=== PATIENT | male | born 1955 | race Caucasian/White ===

== ENCOUNTER → 2016-05-07 | Outpatient (CLI) | payer BC ==
[~2016-05-07] MED LIST: OXYC-57 PO
[2016-05-07 18:51] LABS: BLOOD UREA NITROGEN 17 mg/dl (7-18); BUN/CREATININE RATIO 17.4 (10-20); CALCIUM 8.6 mg/dl (8.5-10.1); CARBON DIOXIDE 29 mmol/L (21-32); CHLORIDE 107 mmol/L (98-107); GLUCOSE 96 mg/dl (70-99); SODIUM 145 mmol/L (136-145)
== END | disposition home or self-care (01) ==
LOC: C.LABMFLN 14:38
PROVIDERS: ATTEND Surgery
DX: Z01.812 Encounter for preprocedural laboratory examination (principal); K40.90 Unilateral inguinal hernia, without obstruction or gangrene, not specified as recurrent

== ENCOUNTER → 2016-05-10 | Outpatient (CLI) | payer BC ==
--- NOTE | 2016-05-10 18:05 | EXERCISE STRESS ECHO ---
*NOTICE TO RECEIVING DEMOCRAT AGENCY This information is strictly Confidential and protected under [place] law. [place] law prohibits you from making any further disclosure of this information unless further disclosure is expressly permitted by the written consent of the person to whom it pertains or is authorized by law. A general authorization for the release of medical or other information is not sufficient for this purpose. Hospital accepts no responsibility if the information is made available to any other person, INCLUDING THE PATIENT. Interpretation Summary * Name: MG URIARTE Study Date: 05/10/2016 10:40 AM BP: 134/78 mmHg * Patient Location: [facility] HR: 77 * : 1955 (M/d/yyyy) Gender: Male Height: 69 in * Age: 60 yrs Ethnicity: [place] Weight: 165 lb * Ordering Physician: Jesus Angel * Referring Physician: Jesus Angel * Performed By: Ramila Casey RCS * * Reason For Study: Abnormal EKG * BSA: 1.9 m2 * -- Conclusions -- * 1. Negative exercise stress echo for ischemia at 104 % MPHR. * 2. Negative stress ECG for ischemia. * 3. Above average functional capacity. Exercised 9:00 min, acheiving 10.1 METS. * 4. No exercise induced chest pain. Normal hemodynamic response to exercise. * 5. Normal resting LV size and function. EF 60-65%. Borderline RV enlargement, normal RV function. No significant valvular pathology. * 6. No prior studies for comparison. Procedure Details * ECHOEX, CPT #[id number] * ECHO COLOR FLOW, CPT #[id number] * ECHO DOPPLER, CPT #[id number] Left Ventricle * The left ventricle is grossly normal size. * There is normal left ventricular wall thickness. * Ejection Fraction = 60-65%. * Resting wall motion: Normal. Stress wall motion: Appropriate increase in Left ventricular systolic function and decrease in cavity size. No stress induced segmental wall motion abnormalities. Right Ventricle * Borderline right ventricular enlargement. * The right ventricular systolic function is normal as assessed by tricuspid annular plane systolic excursion (TAPSE) (normal >1.5 cm). Atria * The left atrial size is normal. * Borderline right atrial enlargement. * No ASD detected; PFO is not assessed. Mitral Valve * The mitral valve is grossly normal. * There is no mitral valve stenosis. * Significant mitral regurgitation is absent. Tricuspid Valve * The tricuspid valve is not well visualized, but is grossly normal. * There is no tricuspid stenosis. * Significant tricuspid regurgitation is absent. Aortic Valve * The aortic valve opens well. * No hemodynamically significant valvular aortic stenosis. * There is no significant aortic regurgitation. Pulmonic Valve * The pulmonary valve is inadequately visualized, but the Doppler data is adequate for interpretation. * There is no significant pulmonary regurgitation. Great Vessels * The aortic root and proximal ascending aorta are normal sized. Pericardium * There is no pericardial effusion. Stress Parameters * Sinus rhythm, left axis deviation, possible septal infarct. Incomplete RBBB. No ST abnormalities * Stress ECG: No ST changes. No arrhythmias. * Rest heart rate was '77' BPM. * Rest blood pressure was '134/78' * Maximum heart rate achieved was 166 bpm. * Maximum heart rate was 104 % of maximum age-predicted heart rate. * Maximum blood pressure was '185/67' * Total exercise time was '9:00' * Maximum exercise MET level achieved was '10.1' METS * Maximum treadmill speed was '3.4' miles per hour. * Maximum treadmill elevation was '14'% grade. * Exercise was terminated due to 'achieving target heart rate' * Normal blood pressure response to exercise. MMode 2D Measurements and Calculations IVSd 1.0 cm IVSs 1.4 cm LVIDd 4.7 cm LVIDs 3.1 cm LVPWd 0.99 cm LVPWs 1.4 cm IVS/LVPW 1.1 FS 34.6 % EDV(Teich) 100.6 ml ESV(Teich) 36.5 ml EF(Teich) 63.7 % EDV(cubed) 101.5 ml ESV(cubed) 28.4 ml EF(cubed) 72.0 % % IVS thick 30.1 % % LVPW thick 41.3 % LV mass(C)d 166.2 grams LV mass(C)dI 87.3 grams/m\S\2 LV mass(C)s 140.0 grams LV mass(C)sI 73.5 grams/m\S\2 CO(Teich) 4.4 l/min CI(Teich) 2.3 l/min/m\S\2 SV(Teich) 64.1 ml SI(Teich) 33.7 ml/m\S\2 CO(cubed) 5.0 l/min CI(cubed) 2.7 l/min/m\S\2 SV(cubed) 73.1 ml SI(cubed) 38.4 ml/m\S\2 Ao root diam 3.6 cm Ao root area 10.1 cm\S\2 ACS 1.8 cm LA dimension 3.3 cm LA/Ao 0.92 LVAd ap4 39.8 cm\S\2 LVLd ap4 9.6 cm EDV(MOD-sp4) 136.0 ml LVAs ap4 19.8 cm\S\2 LVLs ap4 7.4 cm ESV(MOD-sp4) 46.0 ml EF(MOD-sp4) 66.2 % LVAd ap2 36.0 cm\S\2 LVLd ap2 9.0 cm EDV(MOD-sp2) 120.0 ml LVAs ap2 19.1 cm\S\2 LVLs ap2 7.5 cm ESV(MOD-sp2) 43.0 ml EF(MOD-sp2) 64.2 % CO(MOD-sp4) 6.2 l/min CI(MOD-sp4) 3.3 l/min/m\S\2 SV(MOD-sp4) 90.0 ml SI(MOD-sp4) 47.3 ml/m\S\2 CO(MOD-sp2) 5.3 l/min CI(MOD-sp2) 2.8 l/min/m\S\2 SV(MOD-sp2) 77.0 ml SI(MOD-sp2) 40.5 ml/m\S\2 Doppler Measurements and Calculations MV E max salma 57.1 cm/sec MV A max salma 51.3 cm/sec MV E/A 1.1 MV P1/2t max salma 64.1 cm/sec MV P1/2t 96.4 msec MVA(P1/2t) 2.3 cm\S\2 MV dec slope 194.9 cm/sec\S\2 MV dec time 0.42 sec Ao V2 max 138.8 cm/sec Ao max PG 7.7 mmHg Ao max PG (full) 2.7 mmHg LV V1 max PG 5.0 mmHg LV V1 max 111.9 cm/sec PA V2 max 158.1 cm/sec PA max PG 10.0 mmHg
== END | disposition home or self-care (01) ==
LOC: C.CPL 10:11
PROVIDERS: ATTEND Family Medicine
DX: R94.31 Abnormal electrocardiogram [ECG] [EKG] (principal)

== ENCOUNTER → 2016-05-14 | Day surgery (SDC) | payer BC ==
[2016-05-10 15:07] VITALS: Ht 176.5 cm; Wt 75.0 kg
[~2016-05-14] VITALS: Ht 176.5 cm; Wt 75.0 kg
[~2016-05-14] MED LIST changes: +ATROPINE SULFATE 0.1 MG/ML 5ML SYR IV PRN; +BACITRACIN 50000 UNIT VIAL ONE; +BUPIVACAINE 0.5 % 5 MG/1 ML MPF 30ML VIAL ONE; +CEFAZOLIN IV 2,000 MG/60 ML D5W IV ONE; +DEXAMETHASONE SOD INJ 4 MG/ML VIAL ONE; +EpHEDrine SULFATE INJ 50 MG/ML AMP IV PRN; +EpHEDrine SULFATE INJ 50 MG/ML AMP ONE; +FENTANYL CITRATE INJ 50 MCG/1 ML 2 ML VIAL IV PRN; +FENTANYL CITRATE INJ 50 MCG/1 ML 2 ML VIAL ONE; +GLYCOPYRROLATE INJ 0.2 MG/ML VIAL ONE; +HYDROmorphone INJ 1 MG/ML SYR IV PRN; +LACTATED RINGER'S 1000ML 1,000 ML IV SCH; +LIDOCAINE HCL 2% 2 ML VIAL (20MG/ML) ONE; +MIDAZOLAM HCL 1 MG/ML 2ML VIAL ONE; +MoRPHine SULFATE 2 MG/ML CARP IV PRN; +NEOSTIGMINE METHYLSULFATE 5 MG/5 ML SYR ONE; +ONDANSETRON INJ 2 MG/ML 2 ML VIAL IV PRN; +ONDANSETRON INJ 2 MG/ML 2 ML VIAL ONE; +OXYCODONE/ACETAMINOPHEN 5-325 TAB PO PRN; +PHENYLEPHRINE HCL INJ 10 MG/ML VIAL ONE; +PROPOFOL IV EMULSION 10 MG/ML 20 ML VIAL IV ONE; +ROCURONIUM BROMIDE 10 MG/ML 5 ML VIAL ONE; +SODIUM CHLORIDE 0.9% INJ 10 ML VIAL ONE; +SUCCINYLCHOLINE CHLORIDE 20 MG/ML 10 ML VIAL IV ONE
--- NOTE | 2016-05-14 08:15 | Discharge Instructions ---
Discharge Instructions Visit Reason for Visit: Left Inguinal Hernia Discharge Discharge Diagnosis / Problem: Inguinal hernia repair Discharge Goals Goal(s): Decrease discomfort Activity Recommendations Activity Limitations: as noted below Lifting Limitations: no more than 10 pounds Shower/Bathe: tomorrow Driving or Machine Use: resume 3 days after discharge Anesthesia . Post Anesthesia Instructions: If you have had General Anesthesia or IV Sedation: * Do not drive today. * Resume driving when surgeon permits. * Do not make important decisions or sign legal documents today. * Call surgeon for: 1. Temperature elevations greater than 101 degrees F. 2. Uncontrollable pain. 3. Excessive bleeding. 4. Persistent nausea and vomiting. 5. Medication intolerance (nausea, vomiting or rash). * For nausea and vomiting use only clear liquids such as: tea, soda, bouillon until nausea subsides, then gradually increase diet as tolerated. * If you have any concerns or questions, call your surgeon's office. If physician is unavailable and it is an emergency, call 911 or go to the nearest emergency room. . Instructions / Follow-Up Instructions / Follow-Up Dr. Strauss's office in 1 week, call [phone] if you do not already have an appt or with any questions Ice groin off and on alternating every 20 minutes until bedtime Diet Recommendations Recommended Home Diet: no limitations Pending Studies Studies pending at discharge: no Medical Emergencies . Who to Call and When: Medical Emergencies: If at any time you feel your situation is an emergency, please call 911 immediately. . Non-Emergent Contact Non-Emergency issues call your: Surgeon Call Non-Emergent contact if: you have a fever, temperature is above 101.5, your pain is not controlled, wound has increased redness . . "Provider Documentation" section prepared by Kris Conn.
--- NOTE | 2016-05-14 09:14 | History & Physical Bridge Note ---
H&P Re-Evaluation Bridge Note: I have examined the patient, reviewed the History & Physical and in the interval since the performance of the History & Physical I have noted the following changes of clinical significance: No changes noted pt marked, SO at bedside
--- NOTE | 2016-05-14 10:34 | [facility] Operative Report ---
Operative Report Operative Date May 14, 2016. Pre-Operative Diagnosis Left Inguinal Hernia Post-Operative Diagnosis left indirect hernia and direct weakness Procedure(s) Performed open repair of direct weakness and indirect hernia with marlex mesh reinforcement Surgeon Dr. Strauss Methods Study Analyst Surgeon(s) Clementine Conn PA-C Estimated Blood Loss 4.5 ml Findings as post op dx Specimens A. Left Inguinal Hernia Sac and Contents I attest to the content of the Intraoperative Record and any orders documented therein. Any exceptions are noted below.
--- NOTE | 2016-05-14 11:08 | OPERATIVE REPORT ---
DATE OF OPERATION: 05/14/2016 PREOPERATIVE DIAGNOSIS: Left inguinal hernia. POSTOPERATIVE DIAGNOSIS: Left direct and indirect inguinal hernia. PROCEDURE: Open repair of direct weakness indirect hernia with Marlex mesh tension free. SURGEON: Dr. Strauss. WELDING SPECIALIST: Philippe Conn PA-C. OPERATION AND FINDINGS: SUMMARY: The patient was brought into the operating room theater. The left lower quadrant was prepped with Betadine solution and properly draped. Preemptive local analgesia was used, 0.5% Marcaine without epinephrine to infiltrate 2 fingerbreadths medial to the anterior superior iliac crest subfascially external oblique, then an incision was made parallel to the inguinal ligament, deepened through subcutaneous tissue onto the external oblique, some larger venous veins were ligated with 2-0 silk. We opened the external oblique onto the external ring. In the external ring area there was chronic fibrotic incarcerated tissue was appreciated from the hernial sac longstanding. We at this point then were able to open up the external ring and elevate the cord and its structures over a Bhavna drain. What we identified is that the patient's ilioinguinal nerve was going through the abdominal wall, almost incarcerated through the external oblique fascia; therefore elected to sacrifice it, afraid for chronic pain in that area. We also identified the transversalis fascia was not as prominent as one would look going down towards the conjoined tendon. It seems like the pectoralis was more prominent. We at this point dissected out the hernia sac which was an indirect, quite fibrotic all the way down to the internal ring where we ligated with 2-0 silk suture. I resected the excess sac. This returned retroperitoneal. There was some minimal amount of lipomatous tissue very little along the cord that was left untouched. I used some 3-0 interrupted sutures to close the direct weakness with 3-0 silk and we brought in a sheet of Marlex mesh, onlaid it onto the shelving portion of the inguinal ligament above well pectineus and conjoined tendon superiorly reconstructing the internal ring until it could only accommodate the tip of a hemostat. The area was checked for hemostasis and appeared satisfactory. We then closed this underneath the external oblique completely the cord and the mesh from subcutaneous tissue. More local anesthetic was used, 2-0 Dexon subcutaneous and neville for skin edges. Dressing was applied. The procedure was tolerated well by the patient and was taken to recovery room in good condition. I attest to the content of the Intraoperative Record and any orders documented therein. Any exceptio ns are noted below.
--- NOTE | 2016-05-14 11:12 | Anesthesia Progress Nt - [facility] ---
Anesthesia Post Op Note Date & Time May 14, 2016 at 11:11 Vital Signs Pain Intensity: 0 Vital Signs Past 12 Hours Date Time Temp Pulse Resp B/P Pulse Ox O2 Delivery O2 Flow Rate FiO2 05/14/16 11:08 62 16 05/14/16 11:08 62 16 96 05/14/16 11:03 64 10 98 05/14/16 11:03 65 17 110/65 99 05/14/16 10:58 104/65 05/14/16 10:53 64 18 113/74 100 05/14/16 10:53 65 18 05/14/16 10:48 66 16 100 05/14/16 10:48 37.0 68 16 118/73 99 6 05/14/16 10:48 68 23 119/70 100 05/14/16 08:18 36.5 70 16 134/78 99 Room Air Notes Mental Status: alert / awake / arousable, participated in evaluation Pt Amnestic to Procedure: Yes Nausea / Vomiting: adequately controlled Pain: adequately controlled Airway Patency, RR, SpO2: stable & adequate BP & HR: stable & adequate Hydration State: stable & adequate Anesthetic Complications: no major complications apparent Patient examined in PACU. He is now awake, alert and answering questions. SpO2 97% on RA. Pain described as minimal. C/O mild sore throat but otherwise no issues. Will be transferred to phase 2 recovery shortly.
[2016-05-14 11:40] VITALS: TEMP 36.6
[2016-05-14 12:06] VITALS: BP 125/68; PULSE 51; O2SAT 100
== END | disposition home or self-care (01) ==
LOC: X.SURG 08:03
PROVIDERS: ATTEND Surgery
DX: K40.90 Unilateral inguinal hernia, without obstruction or gangrene, not specified as recurrent (principal); N40.0 Benign prostatic hyperplasia without lower urinary tract symptoms; R29.810 Facial weakness; R53.83 Other fatigue